=== PATIENT | female | born 1980 | race Caucasian/White ===

== ENCOUNTER 2018-02-12 08:38 | Emergency (ER) | payer BC ==
--- NOTE | 2018-02-12 08:55 | ED Physician Documentation ---
Lower Extremity Injury - HISTORIAN Historian: patient - HPI Chief Complaint: Lower Extremity Injury Onset: hours (0730) Where: home Severity: moderate Context: fall, twist (hyperextended ankle) Modifying Factors:: pain on movement - ROS CONST: no problems. denies: fever, chills - PAST HX Past History: other (lower back arthritis, cerbral tumor cerbri) Allergies/Adverse Reactions: Allergies Allergy/AdvReac Type Severity Reaction Status Date / Time ibuprofen [From Motrin] Allergy Brand name Verified 02/12/18 09:06 only-allergic to orange dye orange (food color) Allergy Dye in Verified 02/12/18 09:06 Motrin Brand name-swells Home Medications: Ambulatory Orders Medication Instructions Recorded Acetazolamide [Diamox Sequels] 1.5 tab PO BID 02/12/18 Ibuprofen [Advil] 400 - 800 mg PO Q8 PRN #50 tablet 02/12/18 - SOCIAL HX Smoking History: less than 1 pack/day (10) Alcohol Use: occasionally Drug Use: none - FAMILY HX Family History: none, other (CAD) - VITAL SIGNS Vital Signs: Vital Signs Temp Pulse Resp BP Pulse Ox 98.6 F 103 H 17 145/99 96 02/12/18 08:40 02/12/18 08:40 02/12/18 08:40 02/12/18 08:40 02/12/18 08:40 - REVIEWED ASSESSMENTS Nursing Assessment Reviewed: Yes Vitals Reviewed: Yes ED Results Lab/Radiology - Radiology Radiology Impressions: Examination: Plain film right ankle History: PT FELL X 3 HOURS AGO, PAIN ON LATERAL ASPECT OF RT ANKLE (Hx) / ITS.REASON injury to the lateral sapect post fall (DICOM Hx) Findings: 3 views of the right ankle demonstrates normal cortical margins. No fracture or dislocation. Talar dome is intact. Inferior calcaneal spur. No soft tissue swelling. No joint effusion. Impression: No acute osseous process. - Orders Orders: ED Orders Category Date Time Status ANKLE 3 VIEWS OR MORE [RAD] Stat Exams 02/12/18 Completed Lower Extremities Injury Phy - Physical Exam General Appearance: alert Hips: bilateral hip: non-tender, normal inspection, normal range of motion, no evidence of injury Legs: bilateral: non-tender, normal inspection, normal range of motion, no evidence of injury Knees: bilateral: non-tender, normal inspection, normal range of motion, no evidence of injury Ankle: right: ecchymosis, limited range of motion, pain, soft tissue tenderness (lateral), swelling (lateral), left: non-tender, normal inspection, normal range of motion, no evidence of injury, N/A: deformity (none) Foot: bilateral foot: non-tender, normal inspection, normal range of motion, no evidence of injury Gait: limited by pain Neuro/Vascular/Tendon: no vascular compromise, motor nml, sensation nml Neck/Back: nml inspection, other (mild tenderness to the lower back) Resp/CVS: chest non-tender, breath sounds nml, heart sounds nml, no resp. distress, lungs clear Abdomen: non-tender Discharge Clincal Impression: Strain of right ankle Qualifiers: Encounter type: initial encounter Qualified Code(s): S96.911A - Strain of unspecified muscle and tendon at ankle and foot level, right foot, initial encounter Referrals: Christianne Nixon FNP [Primary Care Provider] - 2 Days Additional Instructions: Keep elevated with a cool compress for the next 24-48 hours. Take Ibuprofen 800mg every 8 hours as needed for pain, take with food. Use crutches to be partial weight bearing or nonweight bearing for the next several days if needed. If symptoms are not improving within the next week to follow-up with primary care provider. Condition: Stable Disposition: 01 HOME, SELF-CARE Decision to Admit: NO Date of Decison to Admit: 02/12/18 Decision Time: 09:37
[2018-02-12 09:06] VITALS: BP 145/99
--- NOTE | 2018-02-12 09:27 | Diagnostic Imaging Report ---
ESSENCE SMITH [facility] [address] [facility] [address] [address] Report Submission Date: Feb 12, 2018 9:19:44 AM CDT Patient Study Name: NELLY BAXTER Date: Feb 12, 2018 9:03:00 AM CDT Modality Type: DX Gender: F Description: LOWER EXTREMITY : 84 Institution: [facility] Physician: ESSENCE SMITH Examination: Plain film right ankle History: PT FELL X 3 HOURS AGO, PAIN ON LATERAL ASPECT OF RT ANKLE (Hx) / ITS.REASON injury to the lateral sapect post fall (DICOM Hx) Findings: 3 views of the right ankle demonstrates normal cortical margins. No fracture or dislocation. Talar dome is intact. Inferior calcaneal spur. No soft tissue swelling. No joint effusion. Impression: No acute osseous process. Electronically signed on Feb 12, 2018 9:19:44 AM CDT by: Chepe LOPEZ
== END 2018-02-12 09:55 | disposition home or self-care (01) ==
LOC: ED 08:38
DX: S96.911A Strain of unspecified muscle and tendon at ankle and foot level, right foot, initial encounter (principal); W19.XXXA Unspecified fall, initial encounter; Y92.9 Unspecified place or not applicable; Y93.9 Activity, unspecified; Y99.9 Unspecified external cause status
CPT/HCPCS: 73610; L4350; 99283